=== PATIENT | female | born 2005 | race Caucasian/White ===

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

== ENCOUNTER 2023-09-26 12:04 | Emergency (ER) | payer OTHER ==
[~2023-09-26] VITALS: Ht 167.6 cm; Wt 60.1 kg
[2023-09-26 13:51] LABS: BASO % 0.2 % (0.0-1.0); EOS # 0.1 10^3/uL (0.0-0.5); EOS % 1.1 % (0.0-3.0); HEMATOCRIT 42.8 % (36.0-47.0); HEMOGLOBIN 14.2 g/dl (12.0-15.5); LYMPH # 2.3 10^3/uL (1.5-5.0); LYMPH % 35.7 % (24.0-44.0); MEAN CORPUSCULAR HEMOGLOBIN 27.9 pg (27.0-33.0); MEAN CORPUSCULAR HGB CONC 33.2 g/dl (32.0-36.5); MEAN CORPUSCULAR VOLUME 84.1 fl (80.0-96.0); MONO # 0.4 10^3/uL (0.0-0.8); NEUTROPHILS # 3.5 10^3/uL (1.5-8.5); NEUTROPHILS % 55.8 % (36.0-66.0); PLATELET COUNT, AUTOMATED 229 10^3/uL (150-450); RED BLOOD COUNT 5.09 10^6/uL (4.00-5.40); WHITE BLOOD COUNT 6.3 10^3/uL (4.0-10.0)
[2023-09-26] MEDS: KETOROLAC 30 MG/ML 1ML VIAL IV ONE (14:05)
[2023-09-26 14:11] LABS: C REACTIVE PROTEIN QUANTITATIV < 0.40 MG/DL (<1.0)
[2023-09-26 14:13] LABS: BLOOD UREA NITROGEN 8 MG/DL (9-23); CARBON DIOXIDE LEVEL 25 MMOL/L (20-31); CHLORIDE LEVEL 108 MMOL/L (98-107); CREATININE FOR GFR 0.54 MG/DL (0.55-1.30); GLUCOSE, FASTING 80 MG/DL (60-100); SODIUM LEVEL 139 MMOL/L (136-145)
[2023-09-26 14:17] LABS: HCG, SERUM QUALITATIVE NEGATIVE (NEGATIVE)
[2023-09-26 14:48] LABS: ERYTHROCYTE SEDIMENTATION RATE 19 mm/hr (0-20)
[2023-09-26 15:12] VITALS: BP 112/69; TEMP 97.4; O2SAT 98
== END 2023-09-26 15:33 | disposition home or self-care (01) ==
LOC: M ED 12:04
DX: R07.9 Chest pain, unspecified (principal); Z79.3 Long term (current) use of hormonal contraceptives; F41.9 Anxiety disorder, unspecified; F32.A Depression, unspecified
CPT/HCPCS: 36415; 80048; 84703; 85025; 85379; 85652; 86140; 99284; J1885

== ENCOUNTER 2024-04-05 21:22 | Emergency (ER) | payer OTHER, SELFPAY ==
[~2024-04-05] VITALS: Ht 167.6 cm; Wt 61.2 kg
[2024-04-05 21:22] VITALS: BP 129/80; TEMP 98.9; O2SAT 97
[~2024-04-05 21:22] MED LIST changes: +FLUO-365; -FLUO20CA22; +ONDA-282 PO; -ONDA4TAB6 PO
[2024-04-05] MEDS: IBUPROFEN 600MG TAB PO ONE (23:25)
[2024-04-06] MEDS ORDERED: IBUP-1022 PO (00:21)
[2024-04-06] MEDS ORDERED: AMOX500C PO (00:21)
[2024-04-06] MEDS: AMOXICILLIN 500 MG CAP PO ONE (00:25)
== END 2024-04-06 00:48 | disposition home or self-care (01) ==
LOC: M ED 21:22
DX: K04.7 Periapical abscess without sinus (principal); Z79.1 Long term (current) use of non-steroidal anti-inflammatories (NSAID); Z79.2 Long term (current) use of antibiotics

== ENCOUNTER → 2024-05-20 | Outpatient (REF) | payer OTHER ==
[~2024-05-20] MED LIST changes: +AMOX500C PO; +IBUP-1022 PO
== END ==
LOC: M LAB REF 17:33
PROVIDERS: ATTEND Physician Assistant
DX: R30.0 Dysuria (principal)